=== PATIENT | female | born 1975 | race Caucasian/White ===

== ENCOUNTER 2018-05-02 21:33 | Emergency (ER) | payer MEDICAID ==
[~2018-05-02] VITALS: Ht 162.6 cm; Wt 81.4 kg
[2018-05-02 21:38] VITALS: BP 141/97
[2018-05-02] MEDS ORDERED: FENO145T PO (21:44)
[2018-05-02] MEDS ORDERED: GABA300C PO (21:44)
[2018-05-02] MEDS ORDERED: EMPA25TA PO (21:44)
[2018-05-02] MEDS ORDERED: VORT10TA PO (21:44)
[2018-05-02] MEDS ORDERED: METF1000 PO (21:44)
[2018-05-02] MEDS ORDERED: ESK300 PO (21:44)
[2018-05-02] MEDS ORDERED: ATI.5 PO (21:44)
[2018-05-02] MEDS ORDERED: LISI10TA11 PO (21:44)
[2018-05-02] MEDS ORDERED: ALPR0.5T2 PO (21:44)
--- NOTE | 2018-05-02 21:45 | NUR ---
PATIENT PRESENTS TO ED WITH RIGHT LOWER BACK PAIN RADIATING TO LEFT LOWER BACK X3 DAYS WITH SHARP CONSTANT 8/[address] PEREIRA AT BEDSIDE EVALUATING PT. DENIES N/V/D; SKIN IS PINK/WARM/DRY; AAOX4 WITH EVEN AND STEADY GAIT; LUNGS CLEAR BL; HR EVEN AND REGULAR; PT DENIES ANY FEVER, CP, SOB, OR COUGH AT THIS TIME; PATIENT STATES PAIN OF 8/10 AT THIS TIME; VSS; PATIENT POSITIONED FOR COMFORT; HOB ELEVATED; BEDRAILS UP X2; BED DOWN. ER MD MADE AWARE OF PT STATUS. CONTNIUE TO MONITOR.
[2018-05-02] MEDS ORDERED: KETOROLAC 60 MG/2 ML VIAL IM ONE (22:15)
[2018-05-02 22:56] VITALS: BP 141/97
--- NOTE | 2018-05-02 22:56 | NUR ---
Patient discharged with v/s stable. Written and verbal after care instructions given and explained. Patient alert, oriented and verbalized understanding of instructions. Ambulatory with steady gait. All questions addressed prior to discharge. ID band removed. Patient advised to follow up with PMD. Rx of Cipro and Motrin given. Patient educated on indication of medication including possible reaction and side effects. Opportunity to ask questions provided and answered.
== END 2018-05-02 22:56 | disposition home or self-care (01) ==
LOC: MED 21:33
DX: N39.0 Urinary tract infection, site not specified (principal); E11.9 Type 2 diabetes mellitus without complications; I10 Essential (primary) hypertension; Z90.49 Acquired absence of other specified parts of digestive tract; Z79.84 Long term (current) use of oral hypoglycemic drugs; Z79.899 Other long term (current) drug therapy
CPT/HCPCS: 81002; 81025; 82948; 96372; 99283; J1885

== ENCOUNTER 2018-10-14 00:20 | Emergency (ER) | payer MEDICAID ==
[~2018-10-14] VITALS: Ht 162.6 cm; Wt 78.0 kg
[~2018-10-14 00:20] MED LIST: ALPR0.5T2 PO; ATI.5 PO; EMPA25TA PO; ESK300 PO; FENO145T PO; GABA300C PO; LISI10TA11 PO; METF1000 PO; VORT10TA PO
--- NOTE | 2018-10-14 00:25 | NUR ---
PT TO ER BED 11, REPORT GIVEN TO RAFY WELLS.
[2018-10-14 00:29] VITALS: BP 140/104
[2018-10-14] MEDS ORDERED: NACL 0.9% 1,000 ML IV ONE (00:57)
[2018-10-14] MEDS ORDERED: ONDANSETRON 4 MG/2 ML VIAL IVP ONE (01:00)
[2018-10-14] MEDS ORDERED: DICYCLOMINE 20 MG/2 ML VIAL IM ONE (01:00)
--- NOTE | 2018-10-14 01:30 | NUR ---
PT BIB SELF C/O N/V/D AND ABD PAIN SINCE 4PM YESTERDAY. ABD IS ROUND, SOFT, NON TENDER, ACTIVE BS X4. PT IS AWAKE AND SITTING IN BED, VSS.
[2018-10-14 01:34] LABS: BASOPHILS # (AUTO) 0.1 K/uL (0.00-0.22); BASOPHILS % (AUTO) 0.5 % (0.0-2.0); EOSINOPHILS # (AUTO) 0.2 K/uL (0-0.4); EOSINOPHILS % (AUTO) 1.7 % (0.0-4.0); HEMATOCRIT 45.5 % (36-48); HEMOGLOBIN 14.6 g/dL (12.0-16.0); LYMPHOCYTES # (AUTO) 0.6 K/uL (2.5-16.5); MEAN CORPUSCULAR HEMOGLOBIN 26 pg (27-31); MEAN CORPUSCULAR HGB CONC 32 g/dL (33-37); MEAN CORPUSCULAR VOLUME 81.8 fL (80-94); MONOCYTES # (AUTO) 0.4 K/uL (0.8-1.0); MONOCYTES % (AUTO) 3.3 % (1.7-9.3); NEUTROPHILS # (AUTO) 11.5 K/uL (1.8-7.7); NEUTROPHILS % (AUTO) 89.6 % (42.2-75.2); PLATELET COUNT (AUTO) 204 K/uL (140-450); RED BLOOD CELL COUNT(AUTO) 5.56 MIL/uL (4.20-5.40); RED CELL DISTRIBUTION WIDTH 14.7 % (11.6-13.7); WHITE BLOOD COUNT (AUTO) 12.8 K/uL (4.8-10.8)
[2018-10-14 01:45] LABS: ANION GAP 16.7 (8-16); CARBON DIOXIDE 21.7 mmol/L (21-32); POTASSIUM 3.4 mmol/L (3.5-5.1)
[2018-10-14 01:49] LABS: LYMPHOCYTES % (AUTO) 4.9 % (20.5-51.1)
--- NOTE | 2018-10-14 02:00 | NUR ---
PT REPORTS SHE IS "FEELING BETTER" NO ACTIVE VOMITING OR DIARRHEA SINCE MEDICATION ADMIN, ER MD MADE AWARE.
[2018-10-14 02:02] LABS: ALBUMIN 3.5 g/dL (3.4-5.0); TOTAL BILIRUBIN 0.5 mg/dL (0.0-1.0)
--- NOTE | 2018-10-14 02:15 | NUR ---
PT SITTING UP IN BED, VITALS STABLE.
[2018-10-14] MEDS ORDERED: KETOROLAC 30 MG/ML VIAL IVP ONE (02:45)
--- NOTE | 2018-10-14 03:20 | NUR ---
PT WENT TO CT BY WHEELCHAIR
[2018-10-14] MEDS ORDERED: MORPHINE SULFATE 4 MG/ML SYR IVP ONE (04:15)
[2018-10-14] MEDS ORDERED: fentaNYL 0.05 MG/ML VIAL IVP ONE (04:30)
--- NOTE | 2018-10-14 04:35 | NUR ---
PT HAS SOME PAIN LEVEL 8/10 AT THIS TIME. MADE AWARE, PENDING DC.
[2018-10-14 04:50] VITALS: BP 132/84
--- NOTE | 2018-10-14 04:50 | NUR ---
Patient discharged with v/s stable. Written and verbal after care instructions given and explained. Patient alert, oriented and verbalized understanding of instructions. Ambulatory with steady gait. All questions addressed prior to discharge. ID band removed. Patient advised to follow up with PMD. Rx of BENTYL AND ZOFRAN WAS given. Patient educated on indication of medication including possible reaction and side effects. Opportunity to ask questions provided and answered.
== END 2018-10-14 04:50 | disposition home or self-care (01) ==
LOC: MED 00:20
DX: R10.84 Generalized abdominal pain (principal); R11.2 Nausea with vomiting, unspecified; R19.7 Diarrhea, unspecified; E11.9 Type 2 diabetes mellitus without complications; I10 Essential (primary) hypertension; Z90.49 Acquired absence of other specified parts of digestive tract; Z79.899 Other long term (current) drug therapy; Z79.84 Long term (current) use of oral hypoglycemic drugs
CPT/HCPCS: 36415; 74176; 80053; 81002; 81025; 82948; 83690; 85025; 96361; 96372; 96374; 96375; 99284; J0500; J1885; J2405; J3010

== ENCOUNTER 2018-10-14 23:58 | Emergency (ER) | payer MEDICAID ==
[~2018-10-14] VITALS: Ht 162.6 cm; Wt 78.0 kg
[2018-10-15 00:08] VITALS: BP 136/73
[2018-10-15] MEDS ORDERED: MORPHINE SULFATE 2 MG/ML SYR IM ONE (00:25)
[2018-10-15] MEDS ORDERED: KETAMINE 500 MG/5 ML VIAL IM ONE (01:50)
[2018-10-15 02:25] VITALS: BP 128/74
== END 2018-10-15 02:55 | disposition home or self-care (01) ==
LOC: MED 23:58
DX: N20.0 Calculus of kidney (principal); K52.9 Noninfective gastroenteritis and colitis, unspecified; E11.9 Type 2 diabetes mellitus without complications; I10 Essential (primary) hypertension; Z79.84 Long term (current) use of oral hypoglycemic drugs; Z79.82 Long term (current) use of aspirin; Z79.899 Other long term (current) drug therapy
CPT/HCPCS: 96372; 99283; J2270

== ENCOUNTER 2019-06-14 16:05 | Emergency (ER) | payer MEDICAID ==
[~2019-06-14] VITALS: Ht 162.6 cm; Wt 78.2 kg
[2019-06-14 16:11] VITALS: BP 126/95
[2019-06-14 16:34] VITALS: BP 126/95
== END 2019-06-14 16:32 | disposition home or self-care (01) ==
LOC: MED 16:05
DX: R25.1 Tremor, unspecified (principal); E11.9 Type 2 diabetes mellitus without complications; I10 Essential (primary) hypertension; Z90.49 Acquired absence of other specified parts of digestive tract; Z98.890 Other specified postprocedural states; Z79.84 Long term (current) use of oral hypoglycemic drugs; Z79.899 Other long term (current) drug therapy
CPT/HCPCS: 82948; 99282

== ENCOUNTER 2019-06-27 14:01 | Emergency (ER) | payer MEDICAID ==
[~2019-06-27] VITALS: Ht 162.6 cm; Wt 54.4 kg
--- NOTE | 2019-06-27 14:05 | NUR ---
PT TAKEN TO BED 1.
--- NOTE | 2019-06-27 14:10 | NUR ---
BIB SELF. AAO X4 C/O DIZZINESS, LIGHTHEADED A FEW MINS AGO. PT STATED THAT SHE FELT LIKE SHE WAS GOING TO FAINT. PT DENIES N/V/D, HEADACHE, FEVER, SOB. PT AMBULATED WITH STEADY GAIT. PERRLA BRISK 3MM, EQUAL DEBORA STRENGTH TO UPPER AND LOWER EXTREMITIES. PT PLACED ON FULL ELECTRIC SHOVEL OPERATOR. HOB UP. BED SIDE RAILS UP X1. ON LOW BED POSITION, LOCKED. ER TO EVALUATE PT. HX:HTN, HLD, DM, BIPOLAR, DEPRESSION, ANXIETY MED RX: METFORMIN, JARDENCE, CRESTOR, LITHIUM, CYMBALTA, GABAPENTIN, RUXILITI ACCU CHECK [id number]
[2019-06-27 14:12] VITALS: BP 133/84
--- NOTE | 2019-06-27 14:37 | NUR ---
PT WAS GIVEN URINE CUP, AMBULATED TO THE BATHROOM WITH STEADY GAIT.
--- NOTE | 2019-06-27 14:42 | NUR ---
PT OFFERED WATER. PT TOLERATED WELL
--- NOTE | 2019-06-27 15:10 | NUR ---
DR ZAMORA AT BEDSIDE FOR PT EVALUATION
[2019-06-27 15:56] VITALS: BP 113/65
--- NOTE | 2019-06-27 15:56 | NUR ---
Patient discharged with v/s stable. Written and verbal after care instructions given and explained. Patient verbalized understanding. Ambulatory with steady gait. All questions addressed prior to discharge. Advised to follow up with PMD.
== END 2019-06-27 15:56 | disposition home or self-care (01) ==
LOC: MED 14:01
DX: R55 Syncope and collapse (principal); F41.9 Anxiety disorder, unspecified; E78.5 Hyperlipidemia, unspecified; F31.9 Bipolar disorder, unspecified; I10 Essential (primary) hypertension; E11.9 Type 2 diabetes mellitus without complications; Z79.899 Other long term (current) drug therapy; Z79.84 Long term (current) use of oral hypoglycemic drugs
CPT/HCPCS: 81002; 81025; 82948; 93005; 99283

== ENCOUNTER 2019-12-07 18:02 | Emergency (ER) | payer MEDICAID ==
[~2019-12-07] VITALS: Ht 165.1 cm; Wt 82.1 kg
[2019-12-07 18:22] VITALS: BP 136/91
--- NOTE | 2019-12-07 18:30 | NUR ---
PT AMB TO BED 8.
[2019-12-07] MEDS ORDERED: NACL 0.9% 500 ML IV ONE (18:54)
--- NOTE | 2019-12-07 19:07 | NUR ---
ATTEMPTED IV START WAS ABLE TO DRAW SOME LABS THEN LINE INFILTRATED L AC-- PT UP TO RESTROOM FOR URINE SAMPLE
--- NOTE | 2019-12-07 19:07 | NUR ---
C/O NEAR SYNCOPE, FALL AT HOME UNSURE IF SHE TRIPPED OR BECAME DIZZY DENIES N/V---ADDS FAMILY BECAME WORRIED BECAUSE SHE FELL WITHOUT CAUSE. STATES HER BLOOD SUGAR HAS BEEN IN THE 300'S RECENTLY AFTER HER INSURANCE STOPPED COVERING A DIABETIC MEDICATION CURRENTLY DENIES N/V , DENIES ABDI, FULL CLEAR SPEECH, NO FACIAL ASYMMETRY
--- NOTE | 2019-12-07 19:10 | NUR ---
LAB AT BEDSIDE.
--- NOTE | 2019-12-07 19:10 | NUR ---
ALEJANDRO RN TO CONTINUE CARE.
--- NOTE | 2019-12-07 19:11 | NUR ---
REPORT RECEIVED FROM RAFY NEVAREZ.
[2019-12-07 19:20] LABS: BASOPHILS # (AUTO) 0.1 K/uL (0.00-0.22); BASOPHILS % (AUTO) 0.7 % (0.0-2.0); EOSINOPHILS # (AUTO) 0.2 K/uL (0-0.4); EOSINOPHILS % (AUTO) 2.3 % (0.0-4.0); HEMATOCRIT 39.9 % (36-48); HEMOGLOBIN 13.3 g/dL (12.0-16.0); LYMPHOCYTES # (AUTO) 2.6 K/uL (2.5-16.5); LYMPHOCYTES % (AUTO) 30.8 % (20.5-51.1); MEAN CORPUSCULAR HEMOGLOBIN 27 pg (27-31); MEAN CORPUSCULAR HGB CONC 33 g/dL (33-37); MEAN CORPUSCULAR VOLUME 79.7 fL (80-94); MONOCYTES # (AUTO) 0.5 K/uL (0.8-1.0); MONOCYTES % (AUTO) 6.1 % (1.7-9.3); NEUTROPHILS # (AUTO) 5.1 K/uL (1.8-7.7); NEUTROPHILS % (AUTO) 60.1 % (42.2-75.2); PLATELET COUNT (AUTO) 197 K/uL (140-450); RED CELL DISTRIBUTION WIDTH 14.9 % (11.6-13.7); WHITE BLOOD COUNT (AUTO) 8.5 K/uL (4.8-10.8)
[2019-12-07 19:35] LABS: ACETONE, SERUM NEGATIVE (NEGATIVE)
[2019-12-07] MEDS ORDERED: NACL 0.9% 1,000 ML IV ONE (19:35)
--- NOTE | 2019-12-07 19:37 | NUR ---
INSERTED 22 GAUGE LFA; 1000ML NORMAL SALINE RUNNING.
[2019-12-07 19:40] LABS: ALBUMIN 3.6 g/dL (3.4-5.0); ANION GAP 15.1 (8-16); ASPARTATE AMINOTRANSFERASE 50 U/L (15-37); CARBON DIOXIDE 21.5 mmol/L (21-32); CHLORIDE 103 mmol/L (98-107); CREATININE 1.2 mg/dL (0.6-1.3); GFR ARICAN-AMERICAN 62 mL/min (>90); GLUCOSE 302 mg/dL (74-106); POTASSIUM 3.6 mmol/L (3.5-5.1); SODIUM SERUM 136 mmol/L (136-145); TOTAL BILIRUBIN 0.4 mg/dL (0.0-1.0); UREA NITROGEN, BLOOD 7 mg/dL (7-18)
[2019-12-07 21:00] VITALS: BP 136/91
--- NOTE | 2019-12-07 21:01 | NUR ---
Patient discharged with v/s stable. Written and verbal after care instructions given and explained. Patient alert, oriented and verbalized understanding of instructions. Ambulatory with steady gait. All questions addressed prior to discharge. ID band removed. Patient advised to follow up with PMD. Patient educated on indication of medication including possible reaction and side effects. Opportunity to ask questions provided and answered.
== END 2019-12-07 21:01 | disposition home or self-care (01) ==
LOC: MED 18:02
DX: E11.65 Type 2 diabetes mellitus with hyperglycemia (principal); I10 Essential (primary) hypertension; R55 Syncope and collapse; E86.0 Dehydration; Z79.899 Other long term (current) drug therapy; Z79.84 Long term (current) use of oral hypoglycemic drugs
CPT/HCPCS: 36415; 80053; 82009; 85025; 96360; 99283; J7030

== ENCOUNTER 2020-05-29 14:43 | Emergency (ER) | payer MEDICAID ==
[~2020-05-29] VITALS: Ht 162.6 cm; Wt 74.4 kg
[2020-05-29 14:49] VITALS: BP 100/68
[2020-05-29] MEDS ORDERED: ONDANSETRON 4 MG/2 ML VIAL IVP ONE (15:00)
[2020-05-29] MEDS ORDERED: KETOROLAC 30 MG/ML VIAL IVP ONE (15:00)
--- NOTE | 2020-05-29 15:04 | NUR ---
44 Y/O FEMALE C/O 2 FALLS, 45 MINUTES AGO AND LAST NIGHT/ S/P NEW ONSET OF BILAT LOWER EXTREMITY TREMORS. PT STATES SHE HAD HAD BILAT UPPER EXTR TREMORS FOR "MANY YEARS" AND HAS BEEN FOLLOWING A NEUROLOGIST, BUT LAST NIGHT BEGAN HAVING LOWER EXTR TREMORS. PT STATES SHE FEELS LIKE HER LEGS WENT NUMB AND SHE FELL TO HER KNEES, DENIES ANY LOC OR HEAD TRAUMA. NO FACIAL ASYMMETRY NOTED. 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 PT DENIES ANY PAIN OR TREMORS RIGHT NOW. AMBULATORY WITH STEADY GAIT, VSS. RESP EVEN AND UNLABORED, PMH: DM, HTN, BIPOLAR NKA
[2020-05-29 16:41] VITALS: BP 100/68
== END 2020-05-29 16:41 | disposition home or self-care (01) ==
LOC: MED 14:43
DX: R25.1 Tremor, unspecified (principal); E11.9 Type 2 diabetes mellitus without complications; I10 Essential (primary) hypertension; Z79.899 Other long term (current) drug therapy; Z79.84 Long term (current) use of oral hypoglycemic drugs; Z90.49 Acquired absence of other specified parts of digestive tract
CPT/HCPCS: 70450; 99284

== ENCOUNTER 2021-04-20 19:07 | Emergency (ER) | payer MEDICAID ==
[~2021-04-20] VITALS: Ht 162.6 cm; Wt 75.7 kg
[~2021-04-20 19:07] MED LIST changes: +LISI-486 PO; -LISI10TA11 PO
[2021-04-20 19:30] VITALS: BP 129/90
--- NOTE | 2021-04-20 19:37 | NUR ---
AMBULATED TO BED 8 FROM TRIAGE
[2021-04-20] MEDS ORDERED: KETOROLAC 60 MG/2 ML VIAL IM ONE (19:45)
[2021-04-20] MEDS ORDERED: MORPHINE SULFATE 4 MG/ML SYR IM ONE (20:25)
[2021-04-20] MEDS ORDERED: ACET-8386 PO (20:40)
[2021-04-20] MEDS ORDERED: IBUP-2213 PO (20:40)
--- NOTE | 2021-04-20 20:52 | NUR ---
d/c with VSS. d/c education given. opportunity to ask questions given and answered. rx of norco and motrin given.
== END 2021-04-20 20:53 | disposition home or self-care (01) ==
LOC: MED 19:07
DX: M53.3 Sacrococcygeal disorders, not elsewhere classified (principal); E11.9 Type 2 diabetes mellitus without complications; I10 Essential (primary) hypertension; Z79.899 Other long term (current) drug therapy
CPT/HCPCS: 72220; 96372; 99284; J1885; J2270

== ENCOUNTER 2023-04-20 10:21 | Emergency (ER) | payer MEDICAID ==
[~2023-04-20] VITALS: Ht 162.6 cm; Wt 71.7 kg
[~2023-04-20 10:21] MED LIST changes: +ACET-8905 PO; +IBUP-2213 PO; +METF-1274 PO; -METF1000 PO
[2023-04-20 10:31] VITALS: BP 154/99
== END 2023-04-20 11:08 | disposition home or self-care (01) ==
LOC: MED 10:21
DX: G62.9 Polyneuropathy, unspecified (principal); M79.89 Other specified soft tissue disorders; E11.9 Type 2 diabetes mellitus without complications; I10 Essential (primary) hypertension; Z79.899 Other long term (current) drug therapy; Z79.84 Long term (current) use of oral hypoglycemic drugs
CPT/HCPCS: 99281

== ENCOUNTER 2024-08-06 16:16 | Emergency (ER) | payer MEDICAID ==
[~2024-08-06] VITALS: Ht 162.6 cm; Wt 67.6 kg
[~2024-08-06 16:16] MED LIST changes: -LISI-486 PO; +LISI-951 PO
[2024-08-06 16:29] VITALS: BP 96/68; PULSE 76; RESP 19; TEMP 98.3; O2SAT 98
[2024-08-06] MEDS ORDERED: LIDO1ADH54 TP (16:57)
[2024-08-06] MEDS ORDERED: ACET500T99 PO (16:57)
[2024-08-06] MEDS ORDERED: IBUP-2218 PO (16:57)
[2024-08-06] MEDS ORDERED: CYCL-711 PO (16:57)
[2024-08-06] MEDS: CYCLOBENZAPRINE 10 MG TAB PO ONE (17:16)
[2024-08-06] MEDS: LIDOCAINE 5% 1 EA PATCH TP ONE (17:16)
[2024-08-06] MEDS: KETOROLAC 30 MG/ML VIAL IM ONE (17:19)
[2024-08-06] MEDS: MORPHINE SULFATE 4 MG/ML SYR IM ONE (17:26)
== END 2024-08-06 17:50 | disposition home or self-care (01) ==
LOC: MED 16:16
DX: M54.42 Lumbago with sciatica, left side (principal); E11.9 Type 2 diabetes mellitus without complications; I10 Essential (primary) hypertension; Z98.890 Other specified postprocedural states; Z79.899 Other long term (current) drug therapy
CPT/HCPCS: 96372; 99283; J1885; J2270